=== PATIENT | female | born 1950 | race Caucasian/White ===

== ENCOUNTER 2018-02-27 15:12 | Emergency (ER) | payer OTHER ==
--- NOTE | 2018-02-27 16:18 | EDPHY ---
H & P Stated Complaint: Pain in bladder and urethra, cant sit down. Time Seen by Provider: 02/27/18 16:13 HPI/ROS: CHIEF COMPLAINT: Dysuria HISTORY OF PRESENT ILLNESS: The patient has a history of a pelvic tumor presents to the ED with complaints of dysuria for the past day. The patient has been self-catheterized for the past week. She is having some urinary discomfort as well as pain with sitting. She denies any fever, flank pain, nausea or vomiting. The patient is receiving her regular oncologic care at the [facility]. The patient denies any fever, cough or congestion. The patient denies additional acute complaints. She has moderate discomfort. REVIEW OF SYSTEMS: A comprehensive 10 point review of systems is otherwise negative aside from elements mentioned in the history of present illness. Source: Patient - Personal History Current Tetanus Diphtheria and Acellular Pertussis (TDAP): Yes - Medical/Surgical History Hx Asthma: No Hx Chronic Respiratory Disease: No Hx Diabetes: No Hx Cardiac Disease: No Hx Renal Disease: No Hx Cirrhosis: No Hx Alcoholism: No Hx HIV/AIDS: No Hx Splenectomy or Spleen Trauma: No Other PMH: BREAST AND CERVICAL CA, LUMPECTOMY - Social History Smoking Status: Never smoked - Physical Exam Exam: General Appearance: Alert, no distress Eyes: Pupils equal and round no pallor or injection ENT, Mouth: Mucous membranes moist Respiratory: There are no retractions, lungs are clear to auscultation Cardiovascular: Regular rate and rhythm Gastrointestinal: Abdomen is soft and nontender, no masses, bowel sounds normal Neurological: 5/5 strength all 4 extremities Skin: Warm and dry, no rashes Musculoskeletal: Neck is supple nontender Extremities: symmetrical, full range of motion Constitutional: Initial Vital Signs Temperature (C) 36.6 C 02/27/18 15:19 Heart Rate 101 H 02/27/18 15:19 Respiratory Rate 18 02/27/18 15:19 Blood Pressure 149/102 H 02/27/18 15:19 O2 Sat (%) 95 02/27/18 15:19 O2 Delivery Mode Room Air Allergies/Adverse Reactions: No Known Allergies Allergy (Unverified 03/10/14 15:21) Home Medications: Medication Instructions Recorded Letrozole 02/27/18 levOFLOXACIN [Levaquin] 500 mg PO DAILY #7 tab 02/27/18 Medical Decision Making ED Course/Re-evaluation: The patient has evidence of cystitis on her urinalysis. She has no clinical evidence of pyelonephritis. The patient will be started on oral antibiotics. She is given 7 days of Levaquin. A urine culture has been ordered. The patient will be advised to return to the ED for markedly worsening symptoms or other concerns. She should continue to follow up with her regular physicians as scheduled. 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 She plans to follow up with her oncologist at the [facility] in several weeks. The patient will follow up with her primary care provider for recheck in the next week. Differential Diagnosis: Differential diagnosis considered includes cystitis, pyelonephritis, urethritis - Data Points Laboratory Results: 02/27/18 16:08 Urine Color YELLOW Urine Appearance TURBID Urine pH 5.0 (5.0-7.5) Ur Specific [place] 1.021 (1.002-1.030) Urine Protein 2+ H (NEGATIVE) Urine Ketones NEGATIVE (NEGATIVE) Urine Blood 3+ H (NEGATIVE) Urine Nitrate NEGATIVE (NEGATIVE) Urine Bilirubin NEGATIVE (NEGATIVE) Urine Urobilinogen NEGATIVE EU EU (0.2-1.0) Ur Leukocyte Esterase 3+ H (NEGATIVE) Urine RBC 50-182 /hpf H /hpf (0-3) Urine WBC 50-182 /hpf H /hpf (0-3) Ur Epithelial Cells NONE SEEN /lpf /lpf (NONE-1+) Urine Bacteria 4+ /hpf H /hpf (NONE SEEN) Urine Mucus 2+ /lpf H /lpf (NONE-1+) Urine Glucose NEGATIVE (NEGATIVE) Departure - Departure Disposition: Home, Routine, Self-Care Clinical Impression: Cystitis Condition: Good Instructions: Urinary Tract Infection in Women (ED) Additional Instructions: 1. Please take your antibiotics as prescribed for next 7 days. 2. Return to the ED for markedly worsening symptoms, fever, vomiting or other concerns. 3. Please follow up with your primary care provider as scheduled. Referrals: NONE *PRIMARY CARE P,. [Primary Care Provider] - As per Instructions Ana Cesar MD [[facility] [place] Primary Care Provider] - As per Instructions Prescriptions: levOFLOXACIN [Levaquin] 500 mg PO DAILY #7 tab
[2018-02-27 16:58] VITALS: BP 134/91
== END 2018-02-27 16:58 | disposition home or self-care (01) ==
DX: N30.90 Cystitis, unspecified without hematuria (principal); B96.20 Unspecified Escherichia coli [E. coli] as the cause of diseases classified elsewhere; Z85.41 Personal history of malignant neoplasm of cervix uteri

== ENCOUNTER → 2018-03-27 | Outpatient (CLI) | payer OTHER | LOC: BMCIMAGING 15:29 | PROVIDERS: ATTEND Internal Medicine | DX: R05 Cough (principal) ==